=== PATIENT | female | born 1985 | race Caucasian/White ===

== ENCOUNTER 2017-10-24 12:31 | Emergency (ER) | payer OTHER ==
[2017-10-24] MEDS ORDERED: Morphine INJ* 4 MG/ML 1 ML SYRINGE (NEW SYRINGE VERSION) IV ONE (13:37)
[2017-10-24] MEDS ORDERED: Ondansetron INJ* 2 MG/ML VIAL IV ONE (13:37)
[2017-10-24] MEDS ORDERED: Morphine VIAL* 4 MG/ML VIAL (1 ml vial) IV ONE ×2 (13:42→13:51)
--- NOTE | 2017-10-24 13:43 | ED ---
Adult Trauma - HPI Summary HPI Summary: Patient here with fall from a truck patient here with fall from truck [place]tan down into another truck along the [facility] [place]. She reports she struck the left side of her ribs and flank area and has burning pain here since. Pain is worse with movement and deep breaths. This occurred at 1145 this morning. She denies head injury, neck pain, numbness, tingling, weakness, pain radiating into LE's, bowel/bladder changes and she is not experiencing shortness of breath or chest pain. She is currently lying on her right side as touching her left is extremely painful. She's not urinated since this event and is afraid to do so. She denies anticoagulant therapy but does have a history of herniated disks which required surgery with Dr. Barnes. She's been maintaining her intermittent back pain with ibuprofen and Tylenol and an occasional oxycodone - otherwise back has been doing well. - History of Current Complaint Chief Complaint: EDTraumaMultiple Stated Complaint: BACK PAIN/INJURY Time Seen by Provider: 10/24/17 12:45 Hx Obtained From: Patient Pain Intensity: 20 - Allergy/Home Medications Allergies/Adverse Reactions: Allergies Allergy/AdvReac Type Severity Reaction Status Date / Time No Known Allergies Allergy Verified 05/29/16 08:52 Home Medications: Home Medications NK [No Home Medications Reported] 10/24/17 [History Confirmed 10/24/17] PMH/Surg Hx/FS Hx/Imm Hx Previously Healthy: Yes Endocrine/Hematology History: Denies: Hx Anticoagulant Therapy, Hx Blood Disorders, Hx Diabetes, Hx Unexplained Bleeding Cardiovascular History: Denies: Hx Hypertension, Hx Pacemaker/ICD, Other Cardiovascular Problems/ Disorders Respiratory History: Reports: Hx Pneumonia - November 2015 Denies: Hx Asthma, Hx Sleep Apnea, Other Respiratory Problems/Disorders GI History: Denies: Other GI Disorders History: Reports: Other Problems/Disorders - tubal ligation Denies: Hx Dialysis, Hx Renal Disease Musculoskeletal History: Reports: Hx Back Problems - herniated disk, L4-5 - surgeries w/ Dr. Barnes, Hx Orthopedic Injury - left shoulder impingement/ labral tear Denies: Other Musculoskeletal History Sensory History: Denies: Hx Contacts or Glasses, Hx Hearing Aid Opthamlomology History: Denies: Hx Contacts or Glasses Neurological History: Reports: Hx Headaches, Hx Migraine - COUPLE TIMES A WEEK- TX WITH EXCEDRIN MIGRAINE, Other Neuro Impairments/Disorders - PAIN CLINIC PATIENT Psychiatric History: Reports: Hx Anxiety, Hx Panic Disorder - Surgical History Surgery Procedure, Year, and Place: TONSILS/ADNOID 1993-GALLBLADDER 2003-LEFT SHOULDER SURGERY 2008&2012. BACK SURGERY 2013&2014-TUBAL LIGASTION 2011 Hx Anesthesia Reactions: No Infectious Disease History: No Infectious Disease History: Denies: Traveled Outside the [place] in Last 30 Days - Family History Known Family History: Positive: Unknown - Social History Lives: With Family Alcohol Use: None Alcohol Amount: 11/30/15 Hx Substance Use: No Substance Use Type: Reports: None Hx Tobacco Use: Yes Smoking Status (MU): Current Every Day Smoker Type: Cigarettes Amount Used/How Often: 1/2 ppd Length of Time of Smoking/Using Tobacco: began smoking at age 16 Have You Smoked in the Last Year: Yes Review of Systems Constitutional: Negative Eyes: Negative Negative: Chest Pain Negative: Shortness Of Breath Negative: Abdominal Pain, Vomiting, Diarrhea, Nausea Positive: see HPI Positive: Arthralgia, Myalgia, Decreased ROM - 2ndry to pain Skin: Other - superficial redness over back where she hit truck Neurological: Negative Negative: Headache, Weakness, Paresthesia, Numbness, Syncope, Slurred Speech Positive: Anxious All Other Systems Reviewed And Are Negative: Yes Physical Exam Triage Information Reviewed: Yes Vital Signs On Initial Exam: Initial Vitals Temp Pulse Resp BP Pulse Ox 99.0 F 82 19 113/54 98 10/24/17 12:58 10/24/17 12:58 10/24/17 12:58 10/24/17 12:58 10/24/17 12:58 Vital Signs Reviewed: Yes Appearance: Positive: Well-Nourished, Pain Distress - moderate to severe pain - tearful - gaurding movements for fear of exacerbating pain - lying on Rt side Skin: Positive: Warm, Skin Color Reflects Adequate Perfusion, Dry - superficial linear horizontal abrasions over central/Lt mid back/flank area - no skin breakdown Head/Face: Positive: Normal Head/Face Inspection Eyes: Positive: Normal, EOMI, ORALIA ENT: Positive: Normal ENT inspection, Hearing grossly normal, Pharynx normal - mucosa moist Neck: Positive: Supple, Nontender Respiratory/Lung Sounds: Positive: Clear to Auscultation, Breath Sounds Present - no flail chest Cardiovascular: Positive: Normal, RRR, Pulses are Symmetrical in both Upper and Lower Extremities, S1, S2 Abdomen Description: Positive: Nontender, No Organomegaly, Soft Bowel Sounds: Positive: Present Musculoskeletal: Positive: Pain @ - Lt flank/lumbar region (soft tissue and spinpous pp) TTP Neurological: Positive: Normal, Sensory/Motor Intact, Alert, Oriented to Person Place, Time, CN Intact II-III Psychiatric: Positive: Anxious Diagnostics - Vital Signs Vital Signs Temp Pulse Resp BP Pulse Ox 10/24/17 12:58 99.0 F 82 19 113/54 98 - Laboratory Result Diagrams: 10/24/17 13:45 10/24/17 13:45 Lab Statement: Any lab studies that have been ordered have been reviewed, and results considered in the medical decision making process. Re-Evaluation - Re-Evaluation First Eval Change: Unchanged - minimal pain relief w/ morphine Second Eval Change: Improved - better pain relief w/ dilaudid Adult Trauma Course/Dx - Course Course Of Treatment: Spoke to dimopolous - no activity and f/u w/ PCP. Reviewed danger s/sx of when to return to ED. Pt and partner agree w/ plan. - Diagnoses Provider Diagnoses: Fracture of lumbar spine Discharge - Discharge Plan Referrals: Prachi Hoyos [Primary Care Provider] -
[2017-10-24 13:55] LABS: ABS Basophils 0.1 10^3/ul (0-0.2); ABS Eosinophils 0.2 10^3/ul (0-0.6); ABS Lymphocytes 1.9 10^3/ul (1.0-4.8); ABS Monocytes 0.3 10^3/ul (0-0.8); ABS Neutrophils 5.2 10^3/ul (1.5-7.7); ABS Nucleated RBC 0 10^3/ul; Eosinophil % 2.6 % (0-6); Hematocrit 42 % (35-47); Hemoglobin 14.4 g/dl (12.0-16.0); Lymphocyte % 24.3 % (25-47); Mean Corpuscular HGB Conc 35 g/dl (31-36); Mean Corpuscular Hemoglobin 33 pg (27-31); Mean Corpuscular Volume 96 fL (80-97); Mean Platelet Volume 8.4 um3 (7.4-10.4); Nucleated Red Blood Cells % 0; Platelet Count 171 10^3/ul (150-450); Red Blood Count 4.32 10^6/ul (4.0-5.4); Red Cell Distribution Width 13 % (10.5-15); White Blood Count 7.7 10^3/ul (3.5-10.8)
[2017-10-24 14:01] LABS: INR 0.95 (0.77-1.02)
[2017-10-24 14:10] LABS: EGFR Non-African American 85.6 (>60)
[2017-10-24] MEDS ORDERED: Iohexol 300* (CONTRAST) 10 ML SDV IV ONE (14:15)
[2017-10-24 14:28] LABS: Urine Appearance Clear; Urine Blood 1+ (Negative); Urine Color Straw; Urine Ketones Negative (Negative); Urine Protein Negative (Negative); Urine Specific Gravity 1.005 (1.010-1.030); Urine Urobilinogen Negative (Negative)
[2017-10-24] MEDS ORDERED: HYDROmorphone INJ* 2 MG/ML CARPUJECT SYRINGE IV SLOW PU ONE (14:50)
--- NOTE | 2017-10-24 15:12 | RAD ---
INDICATION: Left flank and back pain after the patient "fell from a truck bed into another vehicle". Relevant surgical history includes cholecystectomy and tubal ligation. COMPARISON: MRI of the lumbar spine dated December 17, 2015 TECHNIQUE: Multidetector CT images of the chest, abdomen and pelvis were obtained from the lung apices to the ischial tuberosities following the injection of 80 mL Omnipaque 300. Reformats of the thoracic and lumbar spine were specifically created and independently reviewed.. CHEST: The lungs are clear. There are no large pleural effusions. There is no mediastinal or hilar lymphadenopathy. The heart and major vascular structures are grossly normal in appearance. ABDOMEN & PELVIS: The liver, spleen, pancreas and adrenal glands are grossly normal in appearance. The gallbladder is surgically absent. The kidneys are normal in appearance without focal mass, calcification or signs of hydronephrosis. On the delayed phase images contrast is symmetrically and promptly excreted. Evaluation of the gastrointestinal tract is limited without oral contrast. The small and large bowel are not distended. The appendix is normal in appearance with gas in the lumen (image 54). There is no gross retroperitoneal or mesenteric lymphadenopathy. Surgical clips are noted the bilateral fallopian tubes. The abdominal aorta and iliac arteries are normal in course and diameter. Bones: There is a nondisplaced fracture of the transverse process of the left L1 vertebral body (image 57 of 73 on series 2 and image 100 of 123 on series 305 of the T-spine reformats). At the inferior endplate of the T11 vertebral body there is a small amount of sclerotic irregularity but this has a chronic appearance. There is no retropulsion of fragments indicate fracture. There is loss of intervertebral disc height at multiple levels of the thoracic spine. The vertebral bodies of the lumbar spine are intact and appropriately aligned. Mild degenerative change includes loss of intervertebral disc height at L4/L5. There is chronic appearing pars interarticularis defect at L5/S1 but there is no significant spondylolisthesis at this level. IMPRESSION: 1. Nondisplaced fracture involving the left transverse process of the L1 vertebral body. 2. Additional chronic, degenerative and iatrogenic findings described in the body the report.
[2017-10-24] MEDS ORDERED: Ketorolac INJ* 30 MG/ML 1 ML VIAL IV PUSH ONE (15:41)
[2017-10-24] MEDS ORDERED: Lidocaine PATCH 5%* 1 PATCH TRANSDERM SCH (16:00)
[2017-10-24] MEDS ORDERED: Lidocaine PATCH 5%* 1 PATCH ONE (16:02)
[2017-10-24 16:37] VITALS: BP 99/54
[2017-10-24] MEDS ORDERED: Lidocaine Patch REMOVE* 1 NOTE MISC PATCH OFF SCH (21:00)
== END 2017-10-24 16:35 | disposition home or self-care (01) ==
LOC: ED 12:31
DX: S32.019A Unspecified fracture of first lumbar vertebra, initial encounter for closed fracture (principal); V89.9XXA Person injured in unspecified vehicle accident, initial encounter; Y92.9 Unspecified place or not applicable; F17.210 Nicotine dependence, cigarettes, uncomplicated
CPT/HCPCS: 36415; 71260; 72128; 72131; 74177; 80053; 81003; 81015; 83605; 85025; 85610; 86850; 86900; 86901; 87086; 93005; 96374; 96375; 96376; 99283; A9270-GY; J1170; J1885; J2270; J2405; Q9967

== ENCOUNTER → 2017-10-26 12:05 | Emergency (ER) | payer OTHER ==
[~2017-10-26 12:05] MED LIST: LORazepam TAB(*) 1 MG PO ONE; oxyCODONE/Acetamin 5/325 MG* TAB PO ONE
[2017-10-26 15:10] VITALS: BP 000/00
--- NOTE | 2017-10-26 15:22 | ED ---
Margoth Sen Edward, scribed for Omid Ricci MD on 10/26/17 at 1237 . Back Pain - HPI Summary HPI Summary: 32 y/o female presents to the ED c/o worsening back pain starting several days ago s/p fall onto truck. Pain aggravated with breathing. Pt jumped off the side of a truck and fell onto the front bumper of another pickup truck. Pt was seen in the ED several days ago. Pt dx wtih L1 transverse process fracture. Taking ibuprofen/Percocet without relief, last taken at 10:30 this morning. Unable to ambulate. - History of Current Complaint Chief Complaint: EDBackInjuryPain Stated Complaint: BACK PAIN Time Seen by Provider: 10/26/17 12:36 Hx Obtained From: Patient Onset/Duration: Lasting Days, Still Present Onset/Duration: Worse Since Timing: Constant Pain Intensity: 10 Pain Scale Used: 0-10 Numeric Aggravating Symptom(s): Movement, Other - breathing Alleviating Symptom(s): Nothing - Allergies/Home Medications Allergies/Adverse Reactions: Allergies Allergy/AdvReac Type Severity Reaction Status Date / Time No Known Allergies Allergy Verified 05/29/16 08:52 PMH/Surg Hx/FS Hx/Imm Hx Previously Healthy: No Endocrine/Hematology History: Denies: Hx Anticoagulant Therapy, Hx Blood Disorders, Hx Diabetes, Hx Unexplained Bleeding Cardiovascular History: Denies: Hx Hypertension, Hx Pacemaker/ICD, Other Cardiovascular Problems/ Disorders Respiratory History: Reports: Hx Pneumonia - November 2015 Denies: Hx Asthma, Hx Sleep Apnea, Other Respiratory Problems/Disorders GI History: Denies: Other GI Disorders History: Reports: Other Problems/Disorders - tubal ligation Denies: Hx Dialysis, Hx Renal Disease Musculoskeletal History: Reports: Hx Back Problems - herniated disk, L4-5 - surgeries w/ Dr. Barnes, Hx Orthopedic Injury - left shoulder impingement/ labral tear Denies: Other Musculoskeletal History Sensory History: Denies: Hx Contacts or Glasses, Hx Hearing Aid Opthamlomology History: Denies: Hx Contacts or Glasses Neurological History: Reports: Hx Headaches, Hx Migraine - COUPLE TIMES A WEEK- TX WITH EXCEDRIN MIGRAINE, Other Neuro Impairments/Disorders - PAIN CLINIC PATIENT Psychiatric History: Reports: Hx Anxiety, Hx Panic Disorder - Surgical History Surgery Procedure, Year, and Place: TONSILS/ADNOID 1993-GALLBLADDER 2004-LEFT SHOULDER SURGERY 2009&2012. BACK SURGERY 2014&2015-TUBAL LIGASTION 2011 Hx Anesthesia Reactions: No Infectious Disease History: No Infectious Disease History: Denies: Traveled Outside the [place] in Last 30 Days - Family History Known Family History: Positive: Unknown - Social History Alcohol Use: None Alcohol Amount: 11/30/15 Hx Substance Use: No Substance Use Type: Reports: None Hx Tobacco Use: Yes Smoking Status (MU): Current Every Day Smoker Type: Cigarettes Amount Used/How Often: 1/2 ppd Length of Time of Smoking/Using Tobacco: began smoking at age 16 Have You Smoked in the Last Year: Yes Review of Systems Constitutional: Negative Eyes: Negative ENT: Negative Cardiovascular: Negative Respiratory: Negative Gastrointestinal: Negative Genitourinary: Negative Musculoskeletal: Other - back pain Skin: Negative Neurological: Negative Psychological: Normal All Other Systems Reviewed And Are Negative: Yes Physical Exam - Summary Physical Exam Summary: Appearance: The patient is well-nourished in no acute distress and in no acute pain. Skin: The skin is warm and dry and skin color reflects adequate perfusion. HEENT: The head is normocephalic and atraumatic. The pupils are equal and reactive. The conjunctivae are clear and without drainage. Nares are patent and without drainage. Mouth reveals moist mucous membranes and the throat is without erythema and exudate. The external ears are intact. The ear canals are patent and without drainage. The tympanic membranes are intact. Neck: the neck is supple with full range of motion and non-tender. There are no carotid bruits. There is no neck vein distension. Respiratory: Chest is non-tender. Lungs are clear to auscultation and breath sounds are symmetrical and equal. Cardiovascular: Heart is regular rate and rhythm. There is no murmur or rub auscultated. There is no peripheral edema and pulses are symmetrical and equal. Abdomen: The abdomen is soft and non-tender. There are normal bowel sounds heard in all four quadrants and there is no organomegaly palpated. Musculoskeletal: There is no back tenderness noted. Extremities are non-tender with full range of motion. There is good capillary refill. There is no peripheral edema or calf tenderness elicited. Neurological: Patient is alert and oriented to person, place and time. The patient has symmetrical motor strength in all four extremities. Cranial nerves are grossly intact. Deep tendon reflexes are symmetrical and equal in all four extremities. Psychiatric: The patient has an appropriate affect and does not exhibit any anxiety or depression. Triage Information Reviewed: Yes Vital Signs On Initial Exam: Initial Vitals Temp Pulse Resp BP Pulse Ox 98.6 F 67 18 110/67 100 10/26/17 12:07 10/26/17 12:07 10/26/17 12:07 10/26/17 12:07 10/26/17 12:07 Vital Signs Reviewed: Yes Diagnostics - Vital Signs Vital Signs Temp Pulse Resp BP Pulse Ox 10/26/17 12:07 98.6 F 67 18 110/67 100 - Laboratory Lab Statement: Any lab studies that have been ordered have been reviewed, and results considered in the medical decision making process. Back Pain Course/Dx - Course Course Of Treatment: Ms. Ac suffered an L1 transverse process fracture a few days ago and was seen here and started on oxycodone and ibuprofen. Her pain has continued to worsen and she was in a chair most of the night last night because it hurt too much to get out of it. I gave her her normal dose of oxycodone here with ativan as a muscle relaxer and she got a lot of relief and was able to get up out of a chair and will be able to tend to her needs. - Diagnoses Provider Diagnoses: Lumbar transverse process fracture Discharge - Sign-Out/Discharge Documenting (check all that apply): Discharge - Discharge Plan Condition: Stable Disposition: HOME Prescriptions: LORazepam TAB(*) [Ativan TAB(*)] 1 mg PO Q6H PRN #20 tab MDD 4 PRN Reason: Pain Patient Education Materials: Low Back Strain (ED), Back Pain (ED) Referrals: Prachi Hoyos [Primary Care Provider] - 4 Days (PLEASE F/U IN 3-5 DAYS) - Billing Disposition and Condition Condition: STABLE Disposition: HOME The documentation as recorded by the Margoth ruiz Edward accurately reflects the service I personally performed and the decisions made by me, Omid Ricci MD.
== END | disposition home or self-care (01) ==
LOC: ED 12:05
DX: S32.009A Unspecified fracture of unspecified lumbar vertebra, initial encounter for closed fracture (principal); W19.XXXA Unspecified fall, initial encounter; Y92.9 Unspecified place or not applicable; F17.210 Nicotine dependence, cigarettes, uncomplicated
CPT/HCPCS: 99281; A9270-GY